=== PATIENT | female | born 2000 | race Caucasian/White ===

== ENCOUNTER 2025-06-10 09:11 | Emergency (ER) | payer OTHER ==
[~2025-06-10] VITALS: Ht 157.5 cm; Wt 53.1 kg
[2025-06-10] MEDS ORDERED: DEXAMETHASONE SODIUM PHOSPHATE 4 MG/ML VIAL IM ONE (10:15)
[2025-06-10] MEDS ORDERED: KETOROLAC TROMETHAMINE 30 MG VIAL IM ONE (10:15)
[2025-06-10 10:59] LABS: BASO % 0.2 % (0.1-1.2); EOS # 0.07 (0.04-0.54); EOS % 0.4 % (0.7-7.0); LYMPH # 0.73 (1.18-3.74); LYMPH % 4.6 % (19.3-53.1); MEAN PLATELET VOLUME 11.20 fl (9.4-12.4); MONO # 0.97 (0.24-0.82); MONO % 6.1 % (4.7-12.5); NEUT # 14.16 (1.56-6.13); NEUT % 88.5 % (34.0-71.1); RED CELL DISTRIBUTION WIDTH 12.4 % (11.6-14.4)
[2025-06-10 11:17] LABS: ALT/SGPT 19.0 U/L (12-78); AST/SGOT 12.0 U/L (15-37); BILIRUBIN TOTAL 1.52 mg/dL (0.3-1.2); BUN CREA RATIO 13.0 (7.0-25.0); CREATININE SERUM 0.9 mg/dL (0.55-1.02); GFR 75.11; GLOBULINA 3.3 G/DL (2.4-3.5); GLUCOSE FASTING 98.0 mg/dL (65-100); OSMOLALITY SERUM 283.0 MOSM/KG (275-295)
[2025-06-10 11:37] LABS: COVID-19 AG NEGATIVE (NEGATIVE)
[2025-06-10 12:18] LABS: URINE APPEARANCE Cloudy; URINE BILIRRUBIN Small (NEGATIVE); URINE BLOOD Negative; URINE COLOR Dark Yellow; URINE GLUCOSE Negative (NEGATIVE); URINE LEUKOCYTE Small; URINE NITRATE Negative; URINE PROTEIN 30 (NEGATIVE); URINE UROBILINOGEN 1.0 E.U./dl
[2025-06-10 12:22] LABS: URINE BACTERIA 2339.9 uL (0.0-1933); URINE EPITHELIAL CELLS 65.6 uL (0.0-38.8); URINE RBC 15.1 uL (0.0-20.8); URINE WBC 211.2 uL (0.0-23.2)
[2025-06-10 13:04] LABS: TYPE CELLS SQUAMOUS; URINE CAST 1.17 uL (0.0-1.40); URINE KETONE 40 (NEGATIVE); URINE MUCUS MODERATE
[2025-06-10] MEDS ORDERED: LEVOFLOXACIN750 MG PO (13:15)
[2025-06-10] MEDS ORDERED: PEPCID AC20 MG PO (13:15)
[2025-06-10] MEDS ORDERED: PYRIDIUM200 MG PO (13:15)
[2025-06-10] MEDS ORDERED: KETO10TA2 PO (13:15)
[2025-06-10] MEDS ORDERED: CHLORASEPTIC M1 EAC1 MM (13:15)
== END 2025-06-10 21:54 | disposition home or self-care (01) ==
LOC: ER 09:11
PROVIDERS: General Practice
DX: N39.0 Urinary tract infection, site not specified (principal); J03.90 Acute tonsillitis, unspecified; Z20.822 Contact with and (suspected) exposure to COVID-19; Z88.8 Allergy status to other drugs, medicaments and biological substances